=== PATIENT | male | born 1965 | race Caucasian/White ===

== ENCOUNTER 2016-07-05 14:44 | Inpatient (IN) | payer MEDICARE ==
[~2016-07-05] VITALS: Ht 185.4 cm; Wt 152.5 kg
[2016-07-05 15:52] LABS: HEMOGLOBIN 14.7 gm/dl (14.0-17.5); RED BLOOD COUNT 4.86 M/UL (4.20-5.50); WHITE BLOOD COUNT 16.1 K/UL (4.5-11.0)
[2016-07-05] MEDS ORDERED: METOPROLOL SUCC50 MG PO (20:49)
[2016-07-05] MEDS ORDERED: CELEXA40 MG PO (20:50)
[2016-07-05] MEDS ORDERED: LANOXIN TAB0.125 MG PO (20:50)
[2016-07-05] MEDS ORDERED: CARTIA XT120 MG PO (20:50)
[2016-07-05] MEDS ORDERED: MAG-OX 400 TAB400 MG PO (20:51)
[2016-07-05] MEDS ORDERED: SEROQUEL25 MG PO (20:52)
[2016-07-05] MEDS ORDERED: NEURONTIN 300300 MG PO (20:52)
[2016-07-05] MEDS ORDERED: ALPRAZOLAM0.5 MG PO (20:53)
[2016-07-05] MEDS ORDERED: LIPITOR TAB 2020 MG PO (20:53)
[2016-07-05] MEDS ORDERED: KLOR-CON M2020 MEQ PO (20:54)
[2016-07-05] MEDS ORDERED: PROTONIX40 MG PO (20:55)
[2016-07-05] MEDS ORDERED: ZANAFLEX4 M1 PO (20:55)
[2016-07-05] MEDS ORDERED: OXYCODONE HCL15 MG PO (20:56)
[2016-07-06 02:35] LABS: WHITE BLOOD COUNT 13.5 K/UL (4.5-11.0)
[2016-07-06 02:39] LABS: RED BLOOD COUNT 4.37 M/UL (4.20-5.50)
[2016-07-07 05:05] LABS: HEMOGLOBIN 12.9 gm/dl (14.0-17.5); RED BLOOD COUNT 4.33 M/UL (4.20-5.50); WHITE BLOOD COUNT 11.3 K/UL (4.5-11.0)
[2016-07-08 04:58] LABS: HEMOGLOBIN 12.2 gm/dl (14.0-17.5); RED BLOOD COUNT 4.1 M/UL (4.20-5.50); WHITE BLOOD COUNT 11.9 K/UL (4.5-11.0)
[2016-07-09 08:08] LABS: HEMOGLOBIN 13.4 gm/dl (14.0-17.5); RED BLOOD COUNT 4.45 M/UL (4.20-5.50); WHITE BLOOD COUNT 9.1 K/UL (4.5-11.0)
[2016-07-10 05:48] LABS: HEMOGLOBIN 13.7 gm/dl (14.0-17.5); RED BLOOD COUNT 4.53 M/UL (4.20-5.50)
[2016-07-11 05:54] LABS: HEMOGLOBIN 14.1 gm/dl (14.0-17.5); RED BLOOD COUNT 4.67 M/UL (4.20-5.50); WHITE BLOOD COUNT 9.2 K/UL (4.5-11.0)
[2016-07-12 05:23] LABS: HEMOGLOBIN 12.5 gm/dl (14.0-17.5); RED BLOOD COUNT 4.21 M/UL (4.20-5.50); WHITE BLOOD COUNT 9.2 K/UL (4.5-11.0)
[2016-07-12] MEDS ORDERED: LOVENOX SYR150 MG/ML SQ (11:04)
[2016-07-12] MEDS ORDERED: LOPRESSOR 50 MG50 MG PO (11:09)
[2016-07-12] MEDS ORDERED: COUMADIN7.5 MG PO (11:13)
== END 2016-07-12 13:00 | disposition home or self-care (01) | DRG 682 ==
LOC: ER1 14:44 → ZEROF 17:00 → PROG CARE 20:43 → CCU 07-06 04:37 → M/S 07-08 16:55
PROVIDERS: Emergency Medicine; ADMIT Family Medicine
DX: N17.9 Acute kidney failure, unspecified (principal); J96.22 Acute and chronic respiratory failure with hypercapnia; R57.1 Hypovolemic shock; J96.21 Acute and chronic respiratory failure with hypoxia; E87.1 Hypo-osmolality and hyponatremia; I50.32 Chronic diastolic (congestive) heart failure; J98.11 Atelectasis; E87.4 Mixed disorder of acid-base balance; Z68.41 Body mass index [BMI] 40.0-44.9, adult; T45.515A Adverse effect of anticoagulants, initial encounter; I95.9 Hypotension, unspecified; R00.1 Bradycardia, unspecified; E66.01 Morbid (severe) obesity due to excess calories; E11.21 Type 2 diabetes mellitus with diabetic nephropathy; N18.3 Chronic kidney disease, stage 3 (moderate); I27.2 Other secondary pulmonary hypertension; G47.33 Obstructive sleep apnea (adult) (pediatric); I48.2 Chronic atrial fibrillation; Z79.01 Long term (current) use of anticoagulants; Z86.718 Personal history of other venous thrombosis and embolism; Z86.711 Personal history of pulmonary embolism; Z79.891 Long term (current) use of opiate analgesic; Z79.899 Other long term (current) drug therapy; F41.9 Anxiety disorder, unspecified; Z95.820 Peripheral vascular angioplasty status with implants and grafts; G89.4 Chronic pain syndrome; M54.9 Dorsalgia, unspecified; Z99.81 Dependence on supplemental oxygen; J44.9 Chronic obstructive pulmonary disease, unspecified; Z87.891 Personal history of nicotine dependence; Z84.1 Family history of disorders of kidney and ureter; Z82.3 Family history of stroke; Z83.3 Family history of diabetes mellitus; Z82.49 Family history of ischemic heart disease and other diseases of the circulatory system
CPT/HCPCS: ECHO; 36415; 36600; 71010; 71250; 74150; 80048; 80053; 80061; 80162; 80202; 81001; 82550; 82553; 82570; 82803; 82962; 83605; 83690; 83735; 83880; 84300; 84484; 85025; 85027; 85610; 87040; 87045; 87046; 87177; 93005; 93306; 94640; 94660; 94664; 94760; 96361; 96365; 96375; 99285; J0461; J0696; J1265; J1650; J1815; J2405; J2543; J2550; J3370; J3430; J7030; J7040; J7050; J7070

== ENCOUNTER → 2020-10-13 | Outpatient (CLI) | payer OTHER ==
[~2020-10-13] MED LIST: ACETAMINOPHEN-1 EAC1 PO; ALPRAZOLAM0.5 MG PO; AMIODARONE HCL200 MG PO; ASPIRIN EC81 MG PO; ATORVASTATIN CA80 MG PO; CARTIA XT120 MG PO; CELEXA40 MG PO; CLEOCIN HCL300 MG PO; COUMADIN7.5 MG PO; DULOXETINE HCL60 MG PO; ELIQUIS5 MG PO; GLIPIZIDE5 MG PO; KLOR-CON M2020 MEQ PO; LANOXIN TAB0.125 MG PO; LEVOFLOXACIN250 MG PO; LIPITOR TAB 2020 MG PO; LOPRESSOR 50 MG50 MG PO; LOVENOX SYR150 MG/ML SQ; MAG-OX 400 TAB400 MG PO; MELATONIN10 M2 PO; METOPROLOL SUCC25 MG PO; METOPROLOL SUCC50 MG PO; NEURONTIN 300300 MG PO; OMEPRAZOLE20 M1 PO; OXYCODONE HCL15 MG PO; PROAIR HFA8.5 GM INH; PROTONIX40 MG PO; SEROQUEL25 MG PO; SERTRALINE HCL50 MG PO; SYMBICORT 160-1 INHA INH; TIZANIDINE HCL4 MG PO; TRAMADOL HCL50 MG PO; VIT D PO; ZANAFLEX4 M1 PO
== END ==
LOC: ECHO 10-01 11:00 → HEART 5 15:00
DX: I48.91 Unspecified atrial fibrillation (principal); I42.0 Dilated cardiomyopathy; Q24.0 Dextrocardia; Z79.899 Other long term (current) drug therapy; I51.7 Cardiomegaly; R93.1 Abnormal findings on diagnostic imaging of heart and coronary circulation
CPT/HCPCS: 93306

== ENCOUNTER → 2020-12-17 | Outpatient (CLI) | payer OTHER | LOC: KOH-I 14:51 | DX: J20.9 Acute bronchitis, unspecified (principal) | CPT/HCPCS: 71046 ==

== ENCOUNTER → 2021-07-19 | Outpatient (CLI) | payer OTHER ==
[~2021-07-19] MED LIST changes: +FOLIC ACID1 MG PO; +GABAPENTIN400 MG PO
== END ==
LOC: KOH-I 08:48
DX: Z53.9 Procedure and treatment not carried out, unspecified reason (principal)
CPT/HCPCS: 73700

== ENCOUNTER → 2021-07-22 | Outpatient (CLI) | payer MEDICARE ==
[~2021-07-22] MED LIST changes: -FOLIC ACID1 MG PO; -GABAPENTIN400 MG PO
== END ==
LOC: KOH-I 14:30
DX: Z01.818 Encounter for other preprocedural examination (principal); I73.9 Peripheral vascular disease, unspecified; M79.661 Pain in right lower leg
CPT/HCPCS: 93926

== ENCOUNTER → 2021-08-05 | Outpatient (CLI) | payer MEDICARE ==
[~2021-08-05] MED LIST changes: +FOLIC ACID1 MG PO; +GABAPENTIN400 MG PO
[2021-08-05 15:01] LABS: HEMOGLOBIN 17.4 gm/dl (14.0-17.5); RED BLOOD COUNT 5.62 M/UL (4.20-5.50); WHITE BLOOD COUNT 12.9 K/UL (4.5-11.0)
[2021-08-05 15:24] LABS: BUN/CREATININE RATIO 13 (0-10)
== END ==
LOC: OPSV2 10:00
PROVIDERS: Podiatrist Foot & Ankle Surgery
DX: Z01.818 Encounter for other preprocedural examination (principal); Z95.0 Presence of cardiac pacemaker
CPT/HCPCS: 36415; 80048; 83036; 85027; 85610; 85730; 93005

== ENCOUNTER → 2021-08-11 | Outpatient (CLI) | payer MEDICARE | LOC: NM 08-10 14:00 | DX: Z01.818 Encounter for other preprocedural examination (principal); I50.22 Chronic systolic (congestive) heart failure; I42.0 Dilated cardiomyopathy; I44.7 Left bundle-branch block, unspecified | CPT/HCPCS: 78452; 93017; A9502; J2785 ==

== ENCOUNTER → 2021-08-17 | Outpatient (CLI) | payer MEDICARE | LOC: LAB 14:16 | DX: Z01.812 Encounter for preprocedural laboratory examination (principal) | CPT/HCPCS: 36415; 86850; 86900; 86901 ==

== ENCOUNTER → 2021-08-26 | Outpatient (CLI) | payer MEDICARE | LOC: KOH-I 13:49 | DX: M79.671 Pain in right foot (principal); Z98.1 Arthrodesis status | CPT/HCPCS: 73630 ==

== ENCOUNTER → 2021-09-16 | Outpatient (CLI) | payer MEDICARE | LOC: KOH-I 14:46 | DX: M79.671 Pain in right foot (principal); Z96.698 Presence of other orthopedic joint implants | CPT/HCPCS: 73630 ==

== ENCOUNTER → 2021-10-11 | Outpatient (CLI) | payer MEDICARE | LOC: KOH-I 14:51 | DX: M79.671 Pain in right foot (principal); Z98.1 Arthrodesis status | CPT/HCPCS: 73630 ==

== ENCOUNTER → 2021-11-11 | Outpatient (CLI) | payer MEDICARE | LOC: KOH-I 14:32 | DX: M79.671 Pain in right foot (principal); M24.674 Ankylosis, right foot | CPT/HCPCS: 73630 ==